=== PATIENT | female | born 1965 | race Caucasian/White ===

== ENCOUNTER 2020-08-03 14:33 | Emergency (ER) | payer MEDICAID ==
[~2020-08-03] VITALS: Ht 167.6 cm; Wt 64.0 kg
[2020-08-03] MEDS ORDERED: KETOROLAC 30MG/ML VIAL IM ONE (17:45)
[2020-08-03] MEDS ORDERED: IBUP-2029 MT (18:16)
[2020-08-03 18:40] VITALS: BP 121/91
== END 2020-08-03 18:40 | disposition home or self-care (01) ==
LOC: ER 14:33
DX: M25.551 Pain in right hip (principal); E03.9 Hypothyroidism, unspecified; Z21 Asymptomatic human immunodeficiency virus [HIV] infection status; Z98.890 Other specified postprocedural states; Z88.8 Allergy status to other drugs, medicaments and biological substances
CPT/HCPCS: 73502; 96372; 99283; J1885

== ENCOUNTER 2023-08-09 15:50 | Emergency (ER) | payer MEDICAID ==
[~2023-08-09] VITALS: Ht 167.6 cm; Wt 63.0 kg
[~2023-08-09 15:50] MED LIST: IBUP-2029 MT
[2023-08-09 16:05] VITALS: O2SAT 99
[2023-08-09 17:40] VITALS: BP 129/78; PULSE 80; RESP 18; TEMP 97.8
== END 2023-08-09 19:21 | disposition home or self-care (01) ==
LOC: ER 15:50
DX: S90.32XA Contusion of left foot, initial encounter (principal); Z88.2 Allergy status to sulfonamides; Z98.890 Other specified postprocedural states; Z86.39 Personal history of other endocrine, nutritional and metabolic disease; W18.30XA Fall on same level, unspecified, initial encounter; Y93.89 Activity, other specified; Y92.89 Other specified places as the place of occurrence of the external cause; Y99.8 Other external cause status
CPT/HCPCS: 73610; 73630; 99284

== ENCOUNTER 2023-11-15 19:30 | Emergency (ER) | payer MEDICAID ==
[~2023-11-15] VITALS: Ht 167.6 cm; Wt 63.0 kg
[~2023-11-15 19:30] MED LIST changes: +AMOX1TAB15 MT; +ATOR10TA69 MT; +B50 MT; +BICT1TAB PO; +CHOL400D7 PO; +ESCI20TA MT; +FLUT15.844 BOTHNSTRLS; +IBUP-2028 MT; +LEVO100T9 MT; +OMEP20CA14 MT
[2023-11-15 19:41] VITALS: TEMP 98; O2SAT 96
[2023-11-15] MEDS ORDERED: EPIN0.3P3 IM (20:38)
[2023-11-15] MEDS: FAMOTIDINE 20MG TABLET PO ONE (21:13)
[2023-11-15] MEDS: DEXAMETHASONE 10 MG/ML VIAL PO ONE (21:13)
[2023-11-15 21:16] VITALS: BP 127/74; PULSE 81; RESP 14; O2SAT 98
== END 2023-11-15 21:19 | disposition home or self-care (01) ==
LOC: ER 19:30
DX: T78.40XA Allergy, unspecified, initial encounter (principal); Z88.3 Allergy status to other anti-infective agents; Z79.899 Other long term (current) drug therapy; Z79.890 Hormone replacement therapy; Z90.49 Acquired absence of other specified parts of digestive tract; Z86.39 Personal history of other endocrine, nutritional and metabolic disease; X58.XXXA Exposure to other specified factors, initial encounter
CPT/HCPCS: 99283; J1100; Z7610

== ENCOUNTER 2024-03-09 12:21 | Emergency (ER) | payer MEDICAID ==
[~2024-03-09] VITALS: Ht 167.6 cm; Wt 63.5 kg
[~2024-03-09 12:21] MED LIST changes: +EPIN0.3P3 IM; -IBUP-2029 MT
[2024-03-09 12:30] VITALS: O2SAT 97
[2024-03-09 12:32] VITALS: BP 116/73; PULSE 88; RESP 16; TEMP 98.9; O2SAT 97
[2024-03-09 13:00] LABS: BASOPHILS % 0.8 % (0.0-2.0); HEMATOCRIT. 42.7 % (36.0-48.0); HEMOGLOBIN. 13.9 g/dL (12.0-16.0); LYMPHOCYTES % 31.8 % (20.0-50.0); MEAN CORPUSCULAR HGB CONC 32.6 g/dL (31.0-37.0); MEAN PLATELET VOLUME 8.6 fl (7.4-10.4); NEUTROPHILS % 53.4 % (40.0-76.0); PLATELET 276 x1000/uL (130-400); RED BLOOD CELL COUNT 4.49 mill/uL (4.2-5.4); RED CELL DISTRIBUTION WIDTH 12.2 % (11.6-14.6); WHITE BLOOD COUNT 4.9 x1000/uL (4.5-11.0)
[2024-03-09 13:15] LABS: CALCIUM 9.4 mg/dL (8.7-10.4)
[2024-03-09 13:20] LABS: CREATININE 1.2 mg/dL (0.6-1.0)
[2024-03-09] MEDS ORDERED: PANTOPRAZOLE SODIUM 40 MG/VIAL IV ONE (13:45)
[2024-03-09] MEDS ORDERED: SODIUM CHLORIDE 0.9% 1,000 ML IV ONE (13:45)
[2024-03-09 14:19] LABS: ALANINE AMINOTRANSFERASE 20 IU/L (10-49); ALBUMIN 4.3 g/dL (3.2-4.8); ASPARTATE AMINOTRANSFERASE 27 IU/L (<34); BILIRUBIN DIRECT 0.1 mg/dL (<=3.0); BILIRUBIN TOTAL 0.3 mg/dL (0.1-1.0); PROTEIN TOTAL 6.3 g/dL (6.0-8.3)
[2024-03-09 14:35] LABS: PARTIAL THROMBOPLASTIN TIME 25.6 sec (23.4-31.0); PROTHROMBIN TIME 11.1 sec (9.6-11.0)
[2024-03-09 14:36] LABS: ETHANOL BLOOD < 10 mg/dL (<10)
[2024-03-09] MEDS: PANTOPRAZOLE 40MG DR TABLET PO ONE (16:05)
[2024-03-09] MEDS ORDERED: PROT20 MT (16:18)
== END 2024-03-09 17:54 | disposition home or self-care (01) ==
LOC: ER 12:21
DX: K92.1 Melena (principal); E03.9 Hypothyroidism, unspecified; Z79.899 Other long term (current) drug therapy; Z90.49 Acquired absence of other specified parts of digestive tract; Z98.890 Other specified postprocedural states; Z88.8 Allergy status to other drugs, medicaments and biological substances
CPT/HCPCS: 80076; 80048; 80320; 85025; 85610; 85730; 86850; 86900; 86901; 36415; 74176; 93005; 99284; J7030; G0480